=== PATIENT | female | born 1985 | race American Indian/Alaskan Native ===

== ENCOUNTER 2021-09-13 02:22 | Emergency (ER) | payer OTHER ==
[2021-09-13 04:03] VITALS: BP 110/65
[2021-09-13 04:31] LABS: Bilirubin,Urine NEG (Negative); Blood,Urine SM (Negative); Color,Urine Yellow (Yellow); Mucus,Urine FEW /HPF; Protein,Urine <15 mg/dL mg/dL (Negative); Urobilinogen,Urine < 2.0 mg/dL (<2.0)
[2021-09-13 04:35] LABS: HCG Qualitative,Urine Negative (Negative)
--- NOTE | 2021-09-13 05:16 | Emergency Department Report ---
ED Back Pain/Injury HPI - General Chief Complaint: Urogenital-Female Stated Complaint: BURNING SENSATION RIGHT KIDNEY Time Seen by Provider: 09/13/21 05:11 Source: patient Limitations: No Limitations - History of Present Illness Initial Comments: 36-year-old female who denies any significant past medical history presents to the ER today with complaints of right lower back pain. Patient states that the pain started 3 days ago. He states that has been intermittent in nature. She states that she notices it more when she feels like she gets the urge to urinate and sometimes after she urinates but it can also occur at random times. She described as a burning pain. It is nonradiating and she has no associated low abdominal pain, she does not have dysuria, hematuria or urinary frequency and she has no bowel changes. She denies any nausea or vomiting. She states that she started her menstrual cycle 3 days ago as well. She has no bowel or bladder incontinence. She has no saddle anesthesia. She denies any lower extremity weakness, numbness or tingling. She denies similar symptoms in the past. She states that she was concerned as symptoms was related to a UTI. Patient has not taken anything for pain. MD Complaint: back pain -: days(s) (3) - Related Data Previous Rx's Medication Instructions Recorded Last Taken Type Ibuprofen [Motrin] 600 mg PO Q8H PRN #30 tablet 09/13/21 Unknown Rx Lidocaine [Lidoderm] 1 each TP Q12H #10 patch 09/13/21 Unknown Rx Allergies Allergy/AdvReac Type Severity Reaction Status Date / Time No Known Allergies Allergy Verified 09/13/21 04:01 ED Review of Systems ROS: Stated complaint: BURNING SENSATION RIGHT KIDNEY Other details as noted in HPI Comment: All other systems reviewed and negative Constitutional: denies: chills, diaphoresis, fever, malaise, weakness Eyes: denies: eye pain, eye discharge, vision change ENT: denies: ear pain, throat pain, dental pain, hearing loss, epistaxis, congestion Respiratory: denies: cough, shortness of breath, SOB with exertion, SOB at rest, wheezing Cardiovascular: denies: chest pain, palpitations, edema, syncope, paroxysmal nocturnal dyspnea Gastrointestinal: denies: abdominal pain, nausea, diarrhea Genitourinary: denies: urgency, dysuria, frequency, hematuria, discharge, abnormal menses, dyspareunia Musculoskeletal: back pain. denies: joint swelling, arthralgia Skin: denies: rash, lesions, change in color, change in hair/nails, pruritus ED Past Medical Hx - Past Medical History Previous Medical History?: No - Surgical History Past Surgical History?: No - Medications Home Medications: Home Medications Medication Instructions Recorded Confirmed Last Taken Type Ibuprofen [Motrin] 600 mg PO Q8H PRN #30 tablet 09/13/21 Unknown Rx Lidocaine [Lidoderm] 1 each TP Q12H #10 patch 09/13/21 Unknown Rx ED Physical Exam - General Limitations: No Limitations General appearance: alert, in no apparent distress - Head Head exam: Present: atraumatic, normocephalic, normal inspection - ENT ENT exam: Present: normal exam, mucous membranes moist - Neck Neck exam: Present: normal inspection, full ROM. Absent: meningismus - Respiratory Respiratory exam: Present: normal lung sounds bilaterally. Absent: respiratory distress, wheezes, rales, rhonchi - Cardiovascular Cardiovascular Exam: Present: regular rate, normal rhythm, normal heart sounds - GI/Abdominal GI/Abdominal exam: Present: soft. Absent: distended, tenderness, guarding, rebound - Extremities Exam Extremities exam: Present: normal inspection, full ROM. Absent: tenderness, pedal edema, calf tenderness - Back Exam Back exam: Present: normal inspection, full ROM, paraspinal tenderness (Mild right paraspinal muscle tenderness lower lumbar spine on lumbar flexion). Absent: CVA tenderness (R), CVA tenderness (L), vertebral tenderness - Neurological Exam Neurological exam: Present: alert, oriented X3, CN II-XII intact, normal gait - Psychiatric Psychiatric exam: Present: normal affect, normal mood - Skin Skin exam: Present: intact ED Course Vital Signs 09/13/21 03:55 Temperature 97.9 F Pulse Rate 79 Respiratory 17 Rate Blood Pressure 110/65 [Right] O2 Sat by Pulse 100 Oximetry ED Medical Decision Making - Medical Decision Making 36-year-old female who denies any significant past medical history presents to the ER today with complaints of right lower back pain. Patient states that the pain started 3 days ago. He states that has been intermittent in nature. She states that she notices it more when she feels like she gets the urge to urinate and sometimes after she urinates but it can also occur at random times. She described as a burning pain. It is nonradiating and she has no associated low abdominal pain, she does not have dysuria, hematuria or urinary frequency and she has no bowel changes. She denies any nausea or vomiting. She states that she started her menstrual cycle 3 days ago as well. She has no bowel or bladder incontinence. She has no saddle anesthesia. She denies any lower extremity weakness, numbness or tingling. She denies similar symptoms in the past. She states that she was concerned as symptoms was related to a UTI. She has not taken anything for the pain since it started. Patient urinalysis normal. hCG is negative. Patient is well-appearing, nontoxic and not in any significant distress. Patient is neurologically intact and is ambulatory in the ER. She has no fever, no bowel or bladder incontinence, no saddle anesthesia. Her vital signs are stable.history, physical examination and diagnostic testing does not suggest the presence of acute spinal epidural abscess, acute epidural bleed, cauda equina syndrome, abdominal/thoracic aortic aneurysm, aortic dissection or other acute process requiring further testing, treatment or consultation in the emergency department. Discussed urinalysis results with patient. Back pain could be musculoskeletal at this time. At this time I do not see any indication for doing any further emergent testing. Patient will be given medication to help and recommend doing back stretching exercises and she will be given referral to PCP and orthospine specialist. Patient expressed understanding and agree with plan. She understands to return if worse. Critical care attestation.: If time is entered above; I have spent that time in minutes in the direct care of this critically ill patient, excluding procedure time. ED Disposition Clinical Impression: Right low back pain Disposition: 01 HOME / SELF CARE / HOMELESS Is pt being admited?: No Does the pt Need Aspirin: No Condition: Stable Instructions: Acute Back Pain, Adult, Back Exercises, [id number] Additional Instructions: I recommend the use the lidocaine patches as prescribed and take the Motrin also as prescribed to help with pain. Do the back stretching exercises. You can follow-up with the primary care doctor and or the talent management specialist this edition instructions especially if your symptoms persist but if anything changes or worsens return to the ER immediately. Prescriptions: Lidocaine [Lidoderm] 1 each TP Q12H #10 patch Ibuprofen [Motrin] 600 mg PO Q8H PRN #30 tablet PRN Reason: Pain Referrals: ROGELIO WELLS MD [Staff Physician] - 3-5 Days [facility] [Provider Group] - 3-5 Days Time of Disposition: 05:18
== END 2021-09-13 05:43 | disposition home or self-care (01) ==
LOC: ED 02:22
DX: M54.50 Low back pain, unspecified (principal)
CPT/HCPCS: 81001; 81025; 99283